=== PATIENT | female | born 1990 | race Caucasian/White ===

== ENCOUNTER 2018-12-10 20:32 | Emergency (ER) | payer BC, OTHER ==
--- NOTE | 2018-12-10 21:08 | EDPHY ---
General Time Seen by Provider: 12/10/18 21:08 Narrative: CLINICAL IMPRESSION: Nausea and vomiting, viral syndrome ASSESSMENT/PLAN: Patient is a 28-year-old female with no significant medical history who presents to the Emergency Department with sudden-onset nausea and vomiting after eating out at a restaurant with her family. Patient is well-appearing, no acute distress. She is afebrile and her vital signs were within normal limits, no findings to suggest sepsis. Her abdomen was soft with diffuse nonfocal tenderness to palpation, no peritoneal signs or evidence of a surgical abdomen. Mother is present with the same exact symptoms, daughter just recovered from a upper gastrointestinal illness as well. I suspect her nausea and vomiting is secondary to a viral illness in light of multiple family members with similar symptoms. The patient was given IV fluids and antiemetic with improvement in her symptoms. There were no findings to suggest acute appendicitis, bowel perforation, bowel obstruction or other acute intra- abdominal process. On re-examination she has no tenderness to palpation in all four quadrants, no guarding and no rebound. No tenderness at McBurney's point and a negative Rovsing's sign. There are no masses and no pulsatile mass. Will discharge home, she will continue to push fluids and advance diet as tolerated. Patient was given a referral for a primary care provider if she does not have 1, she understands the importance of close follow-up. Return to ED for persistently high fever or intractable vomiting. Patient verbalizes understanding and is in agreement with this plan. DIFFERENTIAL DX: Nausea and vomiting including but not limited to gastroenteritis, gastritis, appendicitis, and medication side effect. ED COURSE: 2240: On repeat examination prior to discharge the patient is well-appearing appearing, her heart rate has normalized to 88. CHIEF COMPLAINT: Nausea and vomiting HPI: Patient is a 28-year-old female with no significant medical history presents to the Emergency Department with sudden-onset nausea and vomiting after eating at a restaurant with her family, present with her mother who has the same exact symptoms. 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 Ultimately she had 3 episodes of emesis and presented to the emergency department with body aches, nausea and vomiting. Denies hematemesis. No history of abdominal surgeries. Patient denies any other recent illness, she has had no fever, chest pain or shortness of breath. She describes abdominal discomfort but denies any localized abdominal pain. She denies any pelvic pain. She denies any possibility that she is . She denies any vaginal bleeding or vaginal discharge. She has had no urinary symptoms to include dysuria, hematuria or frequency. Patient endorses that her daughter also recently had an upper gastrointestinal illness with nausea and vomiting. PMH: Denies Pertinent Past Surgical History: Denies Family History: Denies Social History: Denies cigarette smoking or illicit drug use REVIEW OF SYSTEMS: All other systems negative Constitutional: Decreased appetite No fever, no chills. Eyes: No discharge, vision change ENT: No sore throat, congestion, ear pain. Cardiovascular: No chest pain, no palpitations. Respiratory: No cough, no shortness of breath. Gastrointestinal: Abdominal discomfort. No diarrhea. Genitourinary: No hematuria, dysuria, flank pain, pelvic pain Musculoskeletal: No back pain, joint swelling, joint pain, myalgias. Skin: No rashes, color change. Neurological: No headache, dizziness, weakness. PHYSICAL EXAM: General Appearance: Well-developed, no acute distress HENT: Normocephalic, atraumatic. Bilateral external ears are normal. Bilateral tympanic membranes are normal with pearly amin reflex. Nares are clear, mucosa is pink. Oropharynx is clear, uvula is midline. There is no tonsillar enlargement or exudate. The dentition is normal. Eyes: PERRLA, EOMI intact. Conjunctiva pink, no pallor or injection. Neck: Supple, nontender, no lymphadenopathy, no midline pain, FROM, no meningismus. Respiratory: There are no retractions, lungs are clear to auscultation. Cardiac: Regular rate and rhythm, no murmurs or gallops. Gastrointestinal: Abdomen is soft, bowel sounds normal, no masses/hernia. Patient has diffuse, nonfocal tenderness to palpation, no rigidity, guarding or focal peritoneal findings. Neurological: Alert and oriented x 3, CN 2-12 grossly intact, normal gait no ataxia, DTR's intact, normal sensation and strength Skin: Warm, dry, no rashes, no nodules on palpation. Musculoskeletal: Extremities are symmetrical, full range of motion, no tenderness, deformity, swelling, or erythema. Psychiatric: Patient is oriented X 3, there is no agitation. MEDICAL DECISION MAKING: Patient was seen independently. Secondary supervising physician at time of evaluation was Dr. Burton, he did not evaluate this patient. Diagnosis: Nausea and vomiting Summary: See Assessment and Plan for summary of ED visit Clinical lab tests: Not applicable Independent visualization of images, tracing, or specimens: Not applicable Decision to obtain medical records or history from someone other than the patient: No Review / Summarize previous medical records: Yes Discussed patient with another provider: Yes, Dr. Burton Patient Progress: Stable, discharged. - History Smoking Status: Never smoked - Objective Vital Signs: Initial Vital Signs Temperature (C) 36.7 C 12/10/18 20:35 Heart Rate 97 12/10/18 20:35 Respiratory Rate 16 12/10/18 20:35 Blood Pressure 98/81 H 12/10/18 20:35 O2 Sat (%) 100 12/10/18 20:35 O2 Delivery Mode Room Air Allergies/Adverse Reactions: amoxicillin Allergy (Verified 12/10/18 20:39) Home Medications: Medication Instructions Recorded Ondansetron Odt [Zofran Odt] 4 mg PO Q8 PRN #10 tab 12/10/18 Medications Given: Discontinued Medications Sodium Chloride (Ns) 1,000 mls @ 0 mls/hr IV EDNOW ONE; Wide Open PRN Reason: Protocol Stop: 12/10/18 21:19 Last Admin: 12/10/18 21:21 Dose: 1,000 mls Sodium Chloride (Ns) 1,000 mls @ 0 mls/hr IV EDNOW ONE; Wide Open PRN Reason: Protocol Stop: 12/10/18 21:55 Last Admin: 12/10/18 21:55 Dose: 1,000 mls Ondansetron HCl (Zofran) 4 mg IVP EDNOW ONE Stop: 12/10/18 21:19 Last Admin: 12/10/18 21:21 Dose: 4 mg Ondansetron HCl (Zofran Odt 4 Mg Prepack#2) 1 btl LUCÍA VIDES ONE Stop: 12/10/18 22:40 Last Admin: 12/10/18 22:53 Dose: 1 btl Departure - Departure Disposition: Home, Routine, Self-Care Clinical Impression: Nausea & vomiting Condition: Good Instructions: Ondansetron (By mouth), Acute Nausea and Vomiting (ED) Additional Instructions: DISCHARGE INSTRUCTIONS FROM YOUR DOCTOR Thank you for visiting our emergency department today. Please keep in mind that discharge from the emergency department does not mean that there is nothing wrong - it simply means that we have not identified an emergency condition that requires further evaluation or treatment in the hospital. You should always plan to follow up with primary care for re-evaluation of your condition in the next 2-3 days. Rest, push non-diuretic, non-caffeinated fluids, clear liquid diet, then a BRAT diet (bananas, rice, applesauce, toast), then slowly advance diet to normal. Attempt small frequent meals. Zofran as prescribed as needed for any recurrent nausea and/or vomiting. Schedule a follow-up appointment with your primary care physician in the next 1- 2 days for re-evaluation. Bring a copy of your test results with you to that appointment. Return for increased or unmanageable pain, new site or character of pain, flank pain, groin pain, pelvic pain, development of fever, chills, recurrent vomiting , vomiting blood or coffee grounds, diarrhea, constipation, bloody stools, black tarry stools, burning or pain with urination, bloody urine, inability to urinate, decreased urine output or other signs of dehydration, dizziness, weakness, fainting, difficulty breathing or swallowing, chest pain, or for any other new, worsening or worrisome symptoms. People present with illnesses and injuries in different ways, and it is always possible that we have missed something. You may always return for re-evaluation if symptoms worsen or if they are not improving or if you develop new/different symptoms. Again, thank you for choosing our emergency department. We hope that you feel better. Referrals: Collette Heller MD [Medical Doctor] - As per Instructions (Please establish care with a primary care provider if you have not done so already.) Stand Alone Forms: Work Excuse Prescriptions: Ondansetron Odt [Zofran Odt] 4 mg PO Q8 PRN #10 tab PRN Reason: Nausea/Vomiting, Can'T Take Po
[2018-12-10] MEDS ORDERED: ONDANSETRON 4 MG/2 ML VIAL IVP ONE (21:18)
[2018-12-10] MEDS ORDERED: NS 1,000 ML IV ONE ×2 (21:18→21:54)
[2018-12-10] MEDS ORDERED: ONDANSETRON 4MG PREPACK#2 BTL TAKEHOME ONE ×2 (22:39→22:53)
[2018-12-10 22:59] VITALS: BP 113/58
== END 2018-12-10 23:17 | disposition home or self-care (01) ==
DX: B34.9 Viral infection, unspecified (principal); R11.2 Nausea with vomiting, unspecified; E86.9 Volume depletion, unspecified
CPT/HCPCS: 96374; J2405